=== PATIENT | female | born 1950 | race Caucasian/White ===

== ENCOUNTER 2017-12-11 11:23 | Emergency (ER) | payer OTHER ==
[~2017-12-11] VITALS: Ht 149.9 cm; Wt 63.0 kg
[2017-12-11] MEDS ORDERED: ATENOLOL25 MG PO (11:50)
[2017-12-11] MEDS ORDERED: SYNTHROID50 MCG PO (11:51)
[2017-12-11] MEDS ORDERED: AMBIEN10 MG PO (11:51)
== END 2017-12-11 13:50 | disposition home or self-care (01) ==
LOC: ER 11:23
DX: M25.511 Pain in right shoulder (principal)